=== PATIENT | female | born 1945 | race Caucasian/White ===

== ENCOUNTER → 2017-03-23 | Outpatient (CLI) | payer MEDICARE, BC ==
[~2017-03-23] MED LIST: AMARYL 4MG. TAB4 MG PO; ANTIVERT12.5 MG PO; ATORVASTATIN CA20 MG PO; BIAXIN500 MG PO; CIPRO 500MG TA500 MG PO; DARVOCET-N 1001 EACH PO; DEXAMETHASONE 2M2 MG PO; DIAZEPAM5 M1 PO; FARXIGA10 MG PO; FISH OIL1000 MG PO; FLAGYL500 MG PO; FLONASE 50 MCG16 GM; FORTAMET500 M1 PO; GLIMEPIRIDE 4MG4 MG PO; KEFLEX 500MG.500 MG PO; LEVOTHYROXIN0.112 M1 PO; LEVOTHYROXIN0.175 MG PO; LORTAB 5/500 501 TAB PO; MECLIZINE HYD12.5 MG PO; MELOXICAM15 MG PO; METFORMIN500 MG PO; MIRAPEX 0.250.25 MG PO; PERCOCET 5/3251 EACH PO; PRAVASTATIN 20M20 MG PO; SIMVASTATIN40 MG PO; ULTRAM 50 MG TA50 MG PO; VICTOZA6 MG/ML SC; ZOFRAN ODT4 MG PO
--- NOTE | 2017-03-24 13:35 | RADIOLOGY REPORT PS360 ---
MRI-LOW EXT ANY JOINT W/O-LT HISTORY: Left knee pain weakness and instability with limited range of motion. ACUTE PAIN OF LEFT KNEE ORDERING PHYSICIAN: Drew Dukes MD PATIENT AGE: 71 years COMPARISON: Radiograph of 03/17/2017 TECHNIQUE: Standard multiplanar multiecho sequences are performed without contrast. FINDINGS: Cruciate ligaments appear intact. The medial and lateral collateral ligaments also appear intact as do the patellar tendon and quadriceps tendon. There is some increased T1 and T2 signal involving the distal aspect of the patellar tendon suggesting tendinopathy/tendinosis. No evidence of meniscal tear. There are slight decrease in the joint space medially with minimal medial extrusion of the medial meniscus. Mild osteoarthritic changes are present at the patellofemoral joint. Patellar cartilage does appear preserved. There is a small knee joint effusion mainly in the suprapatellar region. There is a 5 x 1.27 mm Miller's cyst. IMPRESSION: 1. No evidence of internal arrangement. 2. Mild osteoarthritic changes with medium sized knee joint effusion with an associated Miller's cyst.
== END ==
LOC: RAD 11:11
DX: M25.562 Pain in left knee (principal)

== ENCOUNTER → 2017-07-16 | Outpatient (CLI) | payer MEDICARE, BC ==
[2017-07-16 09:38] LABS: BUN 23 mg/dL (7-18)
[2017-07-16 09:41] LABS: GFR (ESTIMATED) 61 ML/MIN (59-)
== END ==
LOC: LAB 07:33
PROVIDERS: Internal Medicine Endocrinology, Diabetes & Metabolism
DX: E11.65 Type 2 diabetes mellitus with hyperglycemia (principal); E03.8 Other specified hypothyroidism; R94.6 Abnormal results of thyroid function studies; E78.00 Pure hypercholesterolemia, unspecified